=== PATIENT | male | born 1955 | race Caucasian/White ===

== ENCOUNTER 2018-10-25 11:31 | Day surgery (SDC) | payer OTHER ==
[~2018-10-25] VITALS: Ht 182.9 cm; Wt 83.2 kg
[2018-10-25 11:43] VITALS: BP 122/80
[2018-10-25] MEDS ORDERED: LIDOcaine Viscous 15ml cup ONE (12:09)
[2018-10-25] MEDS ORDERED: FENT1PAT10 TP (12:21)
[2018-10-25] MEDS ORDERED: LEVO25TA7 PO (12:22)
[2018-10-25] MEDS ORDERED: ATOR20TA66 PO (12:22)
[2018-10-25] MEDS ORDERED: VERA-1 PO (12:23)
[2018-10-25] MEDS ORDERED: PROC10TA10 PO (12:24)
[2018-10-25] MEDS ORDERED: TRAM50TA2 PO (12:24)
[2018-10-25] MEDS ORDERED: diatr meglu/diatrizoate 30ml oral sol.-(3 dose) bottle PO ONE (13:25)
== END 2018-10-25 14:10 | disposition home or self-care (01) ==
LOC: GI LAB 11:31
PROVIDERS: ATTEND Internal Medicine Gastroenterology
DX: K94.29 Other complications of gastrostomy (principal)
CPT/HCPCS: 43762; 74018; A6449; Q9963; B4088